=== PATIENT | male | born 1960 | race Caucasian/White ===

== ENCOUNTER → 2016-12-29 | Outpatient (CLI) | payer OTHER ==
[2016-12-29 18:21] LABS: ALT/SGPT 35 U/L (12-78); BLOOD UREA NITROGEN 14 mg/dl (7-18); BUN/CREATININE RATIO 13.1 (10-20); CALCIUM 8.9 mg/dl (8.5-10.1); CARBON DIOXIDE 28 mmol/L (21-32); CHLORIDE 104 mmol/L (98-107); GLUCOSE 114 mg/dl (70-99); POTASSIUM 3.8 mmol/L (3.5-5.1); SODIUM 141 mmol/L (136-145)
[2016-12-29 18:25] LABS: CHOLESTEROL 218 mg/dl (0-200); CHOLESTEROL/HDL RATIO 7.5; HDL CHOLESTEROL 29 mg/dl; LDL CHOLESTEROL CALCULATED 149 mg/dl; TRIGLYCERIDES 200 mg/dl (0-150); VERY LOW DENSITY LIPOPROT CALC 40 mg/dl
[2016-12-29 18:36] LABS: RATIO 15.3 mcg/mg (0-30.0)
[2016-12-30 07:14] LABS: ESTIMATED AVERAGE GLUCOSE 177 mg/dl; HA1C FLAG Normal (Normal)
== END | disposition home or self-care (01) ==
LOC: C.LABMFLN 11:35
PROVIDERS: ATTEND Family Medicine
DX: E11.65 Type 2 diabetes mellitus with hyperglycemia (principal)

== ENCOUNTER 2025-03-20 06:06 | Observation (INO) ==
--- NOTE | 2025-02-21 11:48 | PAT Medication Instructions ---
Medication Instructions Date of Service February 21, 2025 Home Medications Medication Instructions Recorded aspirin 81 mg tablet,delayed 81 mg PO DAILY #30 tabs 02/28/24 release (Ecotrin Low Strength) metoprolol tartrate 50 mg tablet 50 mg PO BID #180 tabs 06/29/24 atorvastatin 40 mg tablet 40 mg PO QAM #90 tabs 02/13/25 aspirin 81 mg tablet,delayed release (Ecotrin Low Strength) 81 mg PO DAILY metoprolol tartrate 50 mg tablet 50 mg PO BID atorvastatin 40 mg tablet 40 mg PO QAM cetirizine 10 mg tablet 10 mg PO UD PRN doxycycline monohydrate 100 mg tablet 100 mg PO BID gabapentin 400 mg capsule 300 mg PO TID glipizide 10 mg tablet, extended release 24 hr 10 mg PO QAM lisinopril 5 mg tablet 2.5 mg PO QPM metformin 750 mg tablet 750 mg PO QPM metformin 750 mg tablet,extended release 24 hr 1,500 mg PO QAM metronidazole 0.75 % topical cream (MetroCream) 1 applic topical UD PRN pioglitazone 15 mg tablet (Actos) 15 mg PO QAM tadalafil 20 mg tablet (Cialis) 20 mg PO UD PRN tamsulosin 0.4 mg capsule 0.4 mg PO QAM ASK your prescriber and surgeon aspirin 81 mg tablet,delayed release (Ecotrin Low Strength) 81 mg PO DAILY STOP taking 24 hours before surgery metronidazole 0.75 % topical cream (MetroCream) 1 applic topical UD PRN DO NOT take the morning of surgery cetirizine 10 mg tablet 10 mg PO UD PRN glipizide 10 mg tablet, extended release 24 hr 10 mg PO QAM metformin 750 mg tablet,extended release 24 hr 1,500 mg PO QAM pioglitazone 15 mg tablet (Actos) 15 mg PO QAM tadalafil 20 mg tablet (Cialis) 20 mg PO UD PRN Take morning of surgery With a small sip of water, OTHERWISE NOTHING TO EAT OR DRINK AFTER MIDNIGHT: metoprolol tartrate 50 mg tablet 50 mg PO BID atorvastatin 40 mg tablet 40 mg PO QAM doxycycline monohydrate 100 mg tablet 100 mg PO BID gabapentin 400 mg capsule 300 mg PO TID tamsulosin 0.4 mg capsule 0.4 mg PO QAM Take evening before surgery metoprolol tartrate 50 mg tablet 50 mg PO BID doxycycline monohydrate 100 mg tablet 100 mg PO BID gabapentin 400 mg capsule 300 mg PO TID lisinopril 5 mg tablet 2.5 mg PO QPM metformin 750 mg tablet 750 mg PO QPM Other Notes If you have any questions please call us at [phone] or [phone] or [phone] or [phone]
--- NOTE | 2025-02-27 09:11 | Anesthesiology Consultation ---
Date of Service February 27, 2025 Assessment & Plan (1) Encounter for pre-operative examination: - Case discussed in detail with Dr. Key who advised patient will need cardiology clearance given 01/2024 CABG. Workload note sent. Patient is aware, sees Dr. Wahl tomorradelina for routine visit. Surgeon's office made aware. - cardiology office visit 08/30/24 [place]: "...CAD (coronary artery disease): Status post four-vessel CABG. Blood pressure and heart rate are at target. Continue guideline directed medical therapy including aspirin 81 mg daily, atorvastatin, lisinopril and metoprolol to tartrate 50 mg p.o. twice daily. It would be reasonable for him to use nonsteroidals as needed for his orthopedic issues. He should take a break from them on occasion...Benign essential hypertension: Blood pressure is at target. Agree with lisinopril 2.5 mg daily and metoprolol to tartrate 50 mg p.o. twice daily..." Chart Review Chart Review: Pending: Refer to Additional Notes / Consult section and Patient seen in Pre Admission Testing Teaching & Discussion Pre-Anesthesia Teaching/Discussion Notes: Instructed NPO after midnight before surgery, except medications with 15 cc of water. Medication instructions provided according to the PAT guidelines. History Surgery Operation Date: 03/20/25 07:15 Proposed Procedures p C4-C5 Anterior Cervical Discectomy and Fusion - Jovi Regan MD Height/Weight Height: 6 ft 1 in Weight: 122.9 kg Allergies Allergy/AdvReac Type Severity Reaction Status Date / Time No Known Allergies Allergy Verified 02/20/25 15:31 Medications Home Medications Medication Instructions Recorded Confirmed Last Taken aspirin 81 mg tablet,delayed 81 mg PO DAILY #30 tabs 02/28/24 02/20/25 Unknown release (Ecotrin Low Strength) metoprolol tartrate 50 mg tablet 50 mg PO BID #180 tabs 06/29/24 02/20/25 Unknown atorvastatin 40 mg tablet 40 mg PO QAM #90 tabs 02/13/25 02/20/25 Unknown cetirizine 10 mg tablet 10 mg PO UD PRN allergies 02/20/25 02/20/25 Unknown doxycycline monohydrate 100 mg 100 mg PO BID 02/20/25 02/20/25 Unknown tablet gabapentin 400 mg capsule 300 mg PO TID 02/20/25 02/20/25 Unknown glipizide 10 mg tablet, extended 10 mg PO QAM 02/20/25 02/20/25 Unknown release 24 hr lisinopril 5 mg tablet 2.5 mg PO QPM 02/20/25 02/20/25 Unknown metformin 750 mg tablet 750 mg PO QPM 02/20/25 02/20/25 Unknown metformin 750 mg tablet,extended 1,500 mg PO QAM 02/20/25 02/20/25 Unknown release 24 hr metronidazole 0.75 % topical cream 1 applic topical UD PRN rosacea 02/20/25 02/20/25 Unknown (MetroCream) pioglitazone 15 mg tablet (Actos) 15 mg PO QAM 02/20/25 02/20/25 Unknown tamsulosin 0.4 mg capsule 0.4 mg PO QAM 02/20/25 02/20/25 Unknown tadalafil 20 mg tablet (Cialis) 20 mg PO UD PRN sexual activity #7 02/26/25 Unknown tabs Past Medical History Medical History CAD (coronary artery disease) CABG x 4 Dilated aortic root Moderately dilated aortic root 4.9 cm on 2019 echo and ascending aorta on 2023 stress echo GERD (gastroesophageal reflux disease) controlled, stable per pt History of COVID-19 x2, 2019 and 2020. No hx hospitalization-symptoms resolved HTN (hypertension) controlled, stable per pt Hyperlipidemia Left rotator cuff tear slight/no recommendation for sx. Rosacea Sleep apnea CPAP-compliant SVT (supraventricular tachycardia) Type 2 diabetes mellitus NIDDM Patient denies h/o stroke, seizures, heart attack, heart failure, blood clots/DVTs or blood transfusions. Exercise / Class Metabolic Activity II 4-5 Yardwork/Stairs/Walk up hill (denies chest discomfort or shortness of breath with one flight of stairs) Past Family History Family History Grandmother (Paternal) Diabetes Brother Hypertension Father Prostate cancer Grandmother (Paternal) Stroke Denies family history of Ovarian cancer Myocardial infarction Breast cancer Lung cancer Colorectal cancer Past Surgical History Surgical History History of cardiac cath 01/2024 prior to bypass sx, hx exertional c/p..abnormal stress test...cath/found blockages...bypass sx. cath done at [facility]. History of heart bypass surgery (02/22/24) quadruple bypass...[facility] History of tonsillectomy Hx of local excision of skin lesion (11/14/24) in office setting removed from nose/benign/[facility]/continues to use vaseline nightly and follows with dermatology. Past Anesthesia History No Hx of Anesthesia Complications and No Family Hx of Anesthesia Complications History of PONV No Hx of PONV and No Hx of Motion Sickness Social History Smoking Status: Former smoker Do You Dip or Chew Tobacco: No Smoking End Date: age 18's, for most part hx was pipe/occ cigar Hx Alcohol Use: No Hx Substance Use: No substance use type: does not use Review of Systems Patient denies chest pain, shortness of breath, dyspnea on exertion, fever, chills, cough, wheezing, or palpitations. Physical Exam Vital Signs Vitals BP 108/67 P 58 TEMP 98.2 SP02 97% on RA RESP 18 Physical Patient resting comfortably in chair in no acute distress, alert and oriented, responding appropriately throughout visit Full cervical extension range of motion without pain TMD 3.5 finger breadths Mallampati Score 3 Dentition: intact, denies chipped or loose teeth, caps/crowns, implants or bridges Lungs: normal respiratory effort. Good air movement, clear throughout to auscultation, no adventitious breath sounds Cardiac: regular rate and rhythm, no murmurs noted Carotid arteries: negative bruit bilat Lab Results Anesthesia Preop Results Results Anesthesia Widget: WBC 5.34 K/ul (4.8-10.8) 02/27/25 Hgb 13.4 g/dl (14.0-18.0) L 02/27/25 Hct 39.4 % (42.0-52.0) L 02/27/25 Plt 197 K/uL (130-400) 02/27/25 Na 139 mmol/L (136-145) 02/27/25 K 4.6 mmol/L (3.5-5.1) 02/27/25 Cl 105 mmol/L (98-107) 02/27/25 CO2 27 mmol/L (21-32) 02/27/25 BUN 17 mg/dl (6-23) 02/27/25 Creat 1.01 mg/dl (0.6-1.4) 02/27/25 Glucose Level 171 mg/dl (70-99(Fasting)) H 02/27/25 PT 11.3 Seconds (9.0-12.0) 02/27/25 PTT 27 Seconds (21-31) 02/27/25 INR 1.0 (0.9-1.1) 02/27/25 HA1c 7.2 % (4.5-5.6) H 02/27/25 Blood Type A Positive 02/27/25 Antibody Screen NEGATIVE 02/27/25 Testing Electrocardiogram Date: 02/27/25 Sinus bradycardia, rate 59 bpm Left axis deviation Chest X-Ray Date: 02/27/25 No acute findings. Echocardiogram Date: 04/15/20 EF 65-69% Mild cLVH Mild aortic valve regurgitation Mild tricuspid regurgitation Moderately dilated aortic root 4.9 cm Stress Test Date: 01/21/24 Abnormal exercise echocardiogram with evidence of inducible ischemia and exercise induced chest pain MPHR 90% EF 70% Mild cLVH mildly dilated aortic root Mildly dilated ascending aorta Subsequent CABG x 4 Cervical Spine Date: 02/06/25 1. Discogenic degeneration with facet arthrosis of the above, similar to the exam from 12/15/2023. 2. Mild central canal narrowing at C4-C5. 3. Multilevel neural foraminal stenosis is also generally unchanged. 4. Grade 1 anterolisthesis C4 on C5 and C5 on C6 is unchanged secondary to severe facet arthrosis at these levels. 5. Normal signal of the cervical spinal cord.
[~2025-03-20 06:06] MED LIST: ceFAZolin 2000MG 2,000 MG/15 ML SYR IV SCH
[2025-03-20] MEDS: ACETAMINOPHEN 500 MG TAB PO SCH (06:43)
[2025-03-20] MEDS: LR 60ML/HR IV SCH (06:43)
[2025-03-20] MEDS: GABAPENTIN 300 MG CAP PO SCH ×2 (06:43→14:03)
[2025-03-20] MEDS: LR 15ML/HR IV SCH (06:43)
[2025-03-20] MEDS ORDERED: PROPOFOL IV EMULSION 10 MG/ML 20 ML VIAL IV ONE (06:53)
[2025-03-20] MEDS ORDERED: LIDOCAINE 2% 2 ML VIAL/AMP(20MG/ML) INFIL ONE (06:53)
[2025-03-20] MEDS ORDERED: MIDAZOLAM HCL 1 MG/ML 2ML VIAL ONE (06:53)
[2025-03-20] MEDS ORDERED: fentaNYL citrate PF 100 MCG/2 ML VIAL ONE (06:54)
[2025-03-20] MEDS ORDERED: ROCURONIUM BROMIDE 10 MG/ML 5 ML VIAL IV ONE ×3 (06:59→09:45)
[2025-03-20] MEDS ORDERED: MAG SULFATE 50% 1GM/2ML VIAL IV ONE (07:03)
[2025-03-20] MEDS ORDERED: KETAMINE HCL 10MG/ML SYR ONE (07:05)
--- NOTE | 2025-03-20 07:11 | History & Physical Bridge Note ---
Date of Service March 20, 2025 History & Physical Bridge Note I have examined the patient, reviewed the History & Physical and in the interval since the performance of the History & Physical I have noted the following changes of clinical significance: no changes noted
[2025-03-20] MEDS ORDERED: ePHEDrine sulfate 50 MG/ML AMP IV PRN (07:15)
[2025-03-20] MEDS ORDERED: HYDROmorphone INJ 2 MG/ML SYR/VIAL IV PRN (07:15)
[2025-03-20] MEDS ORDERED: ATROPINE SULFATE 0.1 MG/ML 10ML SYR IV PRN (07:15)
--- NOTE | 2025-03-20 07:16 | History & Physical Report ---
Date of Service March 20, 2025 History of Present Illness Chief Complaint: left shoulder pain/weakness Primary Care Provider: Bola Stack MD Patient returns status post his cervical MRI on February 06. He continues to have the left arm and shoulder symptoms as discussed previously on several visits, evaluated both by myself and also Dr. Johnson. He has known C5 radiculopathy as per previous EMG. He reports no new changes today. Exam reveals symmetric strength for elbow flexion and the other motor groups. Review of cervical MRI images from [facility] from February 06, 2025 this is my separate interpretation, this reveals similar findings as noted on the previous MRI, at the C4-5 level there is a slight amount of anterior subluxation, there is severe left foraminal stenosis. There is some foraminal stenosis on the left at C3-4, but otherwise normal alignment and no findings regarding the central canal or the right foramen, there is some developing foraminal stenosis at C5-6 on the right, but there is no central stenosis at any of the levels. EMG report from [facility] from [facility] for January 27, 2024 reveals evidence of suggestive of subacute axonal pathology affecting C5 and C6 nerve roots bilaterally, also very mild carpal tunnel bilateral. Impression: Left C5 radiculopathy from the C4-5 level due to severe foraminal stenosis. Plan: Today I discussed with the patient treatment options, I did mention to him that if he were to wanting to avoid surgical intervention he could be set up with pain management for a transforaminal injection on the left at C4-5, but due to the amount of stenosis he has as visualized on the obliques, I think this would not be an effective long-term treatment. For this reason I recommended surgical intervention and due to the subluxation I do not think he would be a good candidate for disc arthroplasty, I would recommend ACDF with plate fixation at that level as the best option to try to alleviate the foraminal stenosis. Discussed was a hospital postoperative course, along with healing risk complications. He works in [employer] and I told him we would probably want to restrict his work for at least 6 weeks due to the amount of motion and activities is required for his job, he is understanding this and we will work to get him scheduled in the near future. Allergies Allergy/AdvReac Type Severity Reaction Status Date / Time No Known Allergies Allergy Verified 03/20/25 06:35 Home Medications Medication Instructions Recorded Confirmed Type aspirin 81 mg tablet,delayed 81 mg PO DAILY #30 tabs 02/28/24 03/20/25 Rx release (Ecotrin Low Strength) atorvastatin 40 mg tablet 40 mg PO QAM #90 tabs 02/13/25 03/20/25 Rx cetirizine 10 mg tablet (Zyrtec) 10 mg PO UD PRN allergies 02/20/25 03/20/25 History doxycycline monohydrate 100 mg 100 mg PO BID 02/20/25 03/20/25 History tablet gabapentin 400 mg capsule 300 mg PO TID 02/20/25 03/20/25 History glipizide 10 mg tablet, extended 10 mg PO QAM 02/20/25 03/20/25 History release 24 hr lisinopril 5 mg tablet 2.5 mg PO QPM 02/20/25 03/20/25 History metformin 750 mg tablet 750 mg PO QPM 02/20/25 03/20/25 History metformin 750 mg tablet,extended 1,500 mg PO QAM 02/20/25 03/20/25 History release 24 hr metronidazole 0.75 % topical cream 1 applic topical UD PRN rosacea 02/20/25 03/20/25 History (MetroCream) pioglitazone 15 mg tablet (Actos) 15 mg PO QAM 02/20/25 03/20/25 History tamsulosin 0.4 mg capsule (Flomax) 0.4 mg PO QAM 02/20/25 03/20/25 History tadalafil 20 mg tablet (Cialis) 20 mg PO UD PRN sexual activity #7 02/26/25 03/20/25 Rx tabs metoprolol tartrate 50 mg tablet 50 mg PO BID #180 tabs 02/28/25 03/20/25 Rx Past Med/Surg History Problem List Pre-operative cardiovascular examination, myocardial ischemia Encounter for pre-operative examination Tendinopathy of left biceps tendon Left rotator cuff tear Weakness of left shoulder CAD (coronary artery disease) Coronary artery disease with angina pectoris Numbness and tingling of left upper extremity Cervical radiculopathy at C5 NSAID long-term use Urinary frequency Plantar fasciitis of left foot Chronic GERD Ulnar neuropathy at wrist Carpal tunnel syndrome, left Cervical radiculopathy at C8 Cervical facet syndrome Left Myofascial muscle pain Cervical spondylosis SVT (supraventricular tachycardia) Obstructive sleep apnea (Acute) Benign essential hypertension Hypercholesterolemia Diabetes mellitus Medical History Dilated aortic root Left rotator cuff tear History of COVID-19 GERD (gastroesophageal reflux disease) SVT (supraventricular tachycardia) CAD (coronary artery disease) Rosacea Hyperlipidemia HTN (hypertension) Sleep apnea Type 2 diabetes mellitus Surgical History Hx of local excision of skin lesion (11/14/24) History of cardiac cath History of heart bypass surgery (02/22/24) History of tonsillectomy Family History Grandmother (Paternal) Diabetes Brother Hypertension Father Prostate cancer Grandmother (Paternal) Stroke Denies family history of Ovarian cancer Myocardial infarction Breast cancer Lung cancer Colorectal cancer Social History Smoking Status: Former smoker Tobacco Type: Pipe and Cigars Age Started Using Tobacco: 13; Age Quit Using Tobacco: 23; packs per day: 0.5; Smoking End Date: age 18's, for most part hx was pipe/occ cigar; Second Hand Exposure: No; Do You Dip or Chew Tobacco: No; Hx Alcohol Use: No Hx Substance Use: No Preferred Language: Lao Communication Ability: Effective Hearing Ability: Normal Weave Defect Charting Clerk Required: No Beliefs That Will Affect Care: Episcopal Episcopal Beliefs: Denominational marital status: Current Living Situation: Spouse Current Living Situation Comment: Spouse and Son How many Children do You have: 2 Feels Safe at Home: Yes Childhood Exposure to Second-Hand Smoke: Yes Seatbelt Use: always Sunscreen Use: No Assistive Devices: CPAP, Glasses and Hearing Aid - Bilateral Results & Data Results & Data Vital Signs (Past 12 Hours) Vital Signs Temp Pulse Resp BP Pulse Ox O2 Del Method 03/20/25 06:39 36.6 C 95 H 20 148/94 H 95 Room Air
[2025-03-20] MEDS: ceFAZolin 3000MG 3,000 MG/72.5 ML BAG IV SCH (07:49)
[2025-03-20] MEDS ORDERED: PHENYLEPHRINE 100MCG/ML 5ML SYR ONE (08:20)
[2025-03-20] MEDS ORDERED: ONDANSETRON INJ 2 MG/ML 2 ML VIAL ONE (08:29)
[2025-03-20] MEDS ORDERED: DEXAMETHASONE SOD INJ 4 MG/ML VIAL ONE (08:31)
[2025-03-20] MEDS ORDERED: SUGAMMADEX SODIUM 200 MG/2 ML VIAL IV ONE (09:51)
[2025-03-20] MEDS: GELATIN SPONGE 12-7MM ONE (10:25)
[2025-03-20] MEDS: THROMBIN 5000 UNITS KIT ONE (10:25)
[2025-03-20] MEDS: VANCOMYCIN HCL 1000MG/20ML VIAL ONE (10:26)
[2025-03-20] MEDS: FLOSEAL HEMOSTATIC MATRIX 5ML TOP ONE (10:26)
[2025-03-20] MEDS ORDERED: DO NOT ADMINISTER PNEUMOCOCCAL VACCINE PRN (10:38)
[2025-03-20] MEDS ORDERED: ALUMINUM/MAGNESIUM SUSP 30 ML UDC PO PRN (10:38)
[2025-03-20] MEDS ORDERED: ONDANSETRON INJ 2 MG/ML 2 ML VIAL IV PRN (10:38)
[2025-03-20] MEDS ORDERED: MAGNESIUM HYDROXIDE SUSP 30 ML UDC PO PRN (10:38)
[2025-03-20] MEDS ORDERED: PROMETHAZINE 12.5 MG/50.5 ML BAG IV PRN (10:38)
[2025-03-20] MEDS ORDERED: ACETAMINOPHEN 500 MG TAB PO PRN (10:38)
[2025-03-20] MEDS ORDERED: bisacodyL 10 MG SUPP PR PRN (10:38)
[2025-03-20] MEDS ORDERED: hydrOXYzine HCl 25 MG TAB PO PRN (10:38)
[2025-03-20] MEDS ORDERED: diphenhydrAMINE Capsule 25 MG CAP PO PRN (10:38)
[2025-03-20] MEDS ORDERED: ONDANSETRON 4 MG OD TAB PO PRN (10:38)
[2025-03-20] MEDS ORDERED: PHARMACY GLYCEMIC MGMT CONSULT PRN (10:38)
[2025-03-20] MEDS ORDERED: RACEPINEPHRINE 2.25% NEBU SOLN 0.5 ML VIAL INH PRN (10:38)
[2025-03-20] MEDS ORDERED: NALOXONE HCL 0.4 MG/1 ML VIAL/CARP IV PRN (10:38)
[2025-03-20] MEDS ORDERED: METOCLOPRAMIDE HCL INJ 5 MG/ML 2 ML VIAL IV PRN (10:38)
[2025-03-20] MEDS ORDERED: HYDROmorphone INJ 0.5 MG/0.5 ML SYR IV PRN (10:38)
[2025-03-20] MEDS ORDERED: ACETAMINOPHEN 1,000 MG/100 ML VIAL IV PRN (10:38)
[2025-03-20] MEDS ORDERED: dexAMETHasone 8 MG in SYRINGE 0 ML IV PRN (10:38)
[2025-03-20] MEDS ORDERED: SOD PHOSPHATE/SOD BIPHOSPHATE ENEMA 132 ML BTL PR PRN (10:38)
[2025-03-20] MEDS ORDERED: HYDROmorphone INJ 1 MG/ML SYRINGE IV PRN (10:38)
[2025-03-20] MEDS ORDERED: LORazepam 2 MG/1 ML VIAL IV PRN (10:38)
[2025-03-20] MEDS ORDERED: DO NOT ADMINISTER FLU VACCINE PRN (10:38)
[2025-03-20] MEDS ORDERED: LORazepam 0.5 MG TAB PO PRN (10:38)
[2025-03-20] MEDS ORDERED: FAMOTIDINE 20 MG TAB PO PRN (10:38)
--- NOTE | 2025-03-20 10:38 | Post Operative Brief Note ---
PG Immediate Post Op with CF Date of Surgery March 20, 2025 Pre & Post Diagnosis Operation Date: 03/20/25 07:30 Pre-Op Diagnosis: Cervical radiculopathy at C5, numbness and tingling of left upper extremity Post-Op Diagnosis: Cervical radiculopathy at C5, numbness and tingling of left upper extremity I identified the patient and participated in the time-out.: Yes Procedure Operation Date: 03/20/25 07:30 Actual Procedures p C4-C5 Anterior Cervical Discectomy and Fusion(Not Applicable) - Jovi Regan MD Surgeon Jovi Regan MD Meat Trimmer [employer] Estimated Blood Loss 20 Findings Consistent with Post-Op Diagnosis Specimens Specimen Description: No specimen per surgeon
[2025-03-20] MEDS ORDERED: GLUCOSE 40% GEL 15 GM TUBE PO PRN (11:00)
[2025-03-20] MEDS ORDERED: CARBOHYDRATES FOR HYPOGLYCEMIA PO PRN (11:00)
[2025-03-20] MEDS ORDERED: DEXTROSE 50% 50 ML SYRINGE IV PRN (11:00)
[2025-03-20] MEDS ORDERED: GLUCOSE 10 TAB/TUBE PO PRN (11:00)
[2025-03-20] MEDS ORDERED: GLUCAGON FOR INJ 1 MG VIAL SQ PRN (11:00)
--- NOTE | 2025-03-20 11:02 | Hospitalist Consultation ---
Date of Consultation March 20, 2025 Assessment & Plan (1) Cervical radiculopathy at C5: (2) CAD (coronary artery disease): (3) SVT (supraventricular tachycardia): (4) Hypercholesterolemia: (5) Diabetes mellitus: (6) Benign essential hypertension: (7) Obstructive sleep apnea: Plan 64yo male with PMHx significant for CAD, SVT, HTN, HLD, DM II, WOODY, GERD presented for C4-C5 anterior cervical discectomy and fusion with Dr Regan this morning. EBL 20cc. #Cervical radiculopathy -s/ p C4-C5 Anterior Cervical Discectomy and Fusion(Not Applicable) - Jovi Regan MD. EBL 20cc Pain control, bowel regimen, PT/OT, DVT prophlaxis per primary service Labs in AM #CAD, HTN, HLD, SVT -s/p complete revascularization in 2023 w/ CABG x 4, with no angina symptoms or physical limitations as note/clearance byDr Wahl 02/28- per cards (can hold ASA 7-10days prior to surgery) Continue metoprolol, Lisinopril, statin. Aspirin to resume when ok by primary service Monitor for any issues #DM II- A1c 7.2 in February, acceptable. On pioglitazone 15mg, metformin 750mg BID, glipizide 10mg daily Placed PO meds on hold while inpatient as pharmacy consulted while inpatient for glycemic management Monitor BSGs/adjustments as needed w/ dexamethasone IV w/ surgery Continue gabapentin for neuropathy, can add B12 w/ AM labs #WOODY -CPAP ordered as brought in however did send message primary to ensure able to utilize , otherwise will need to continue NC in meantime DVT proph: SCDs, pat bergman Dispo: continued inpatient stay Thank you for allowing hospitalist service participate in the care of Mr Churchill. Hospitalist service will follow up in AM but if doing well/stable, likely able to sign off. Please call with any questions/concerns. Supervising Physician Co-Signing Physician Notes Attending Attestation & Consult Note: Pt seen/examined, chart reviewed, consult care plan d/w MARTHA Dye. I agree w/ the dolan components of her consult documentation. 64yo male with CAD s/p CABG, SVT, HTN, hyperlipidemia, T2DM, WOODY on CPAP, and GERD. Presented for C4-C5 anterior cervical discectomy and fusion with Dr Regan today. Surgery was uneventful with minimal blood loss. I saw the patient on the medical/surgical floor post-op and he was resting comfortably without dyspnea, chest pain, abd pain or nausea. PMH/PSH/allergies/meds/sochx - reviewed VSS, afebrile gen - NAD, obese, lying comfortably in bed neck - dressings intact anterior neck, no hematoma, no obvious JVD heart - RRR, s1 s2, no murmur lungs - CTA b/l abd - soft NT ND BS+ ext - no edema, pulses 2+ b/l feet psych - a/o x 3 A/P: 1. s/p C4-C5 anterior cervical discectomy with fusion by Dr Regan. Defer pain meds, discharge/dispo to Dr Regan. -will f/u on labs in am 2. T2DM - pharmacy has been consulted by Dr Regan for glycemic oversight; holding PO meds; novolog SSI to be utilized, etc. 3. WOODY - Dr Regan ok with use of CPAP for sleep. 4. CAD - no ischemic symptoms post-op. 5. HTN - BPs minimally elevated post-op. Dexamethasone given faviola-operatively, pain, etc all likely to blame. Follow for now. Appreciate this consult. our team will follow with you. José Miguel Mackey MD History of Present Illness Reason for Consultation: medical management Requesting Physician: Dr Regan Attending Physician: Jovi Regan MD History of Present Illness 64yo male with PMHx significant for CAD, SVT, HTN, HLD, DM II, WOODY, GERD presented for C4-C5 anterior cervical discectomy and fusion with Dr Regan this morning. EBL 20cc. Eval in room 301, sitting up in bed. Pain controlled. Drinking water, tolerating well. No fever/chills, chest pain, shortness of breath, nausea or vomiting. Per patient, bringing in his CPAP for this evening and he is hopeful for dc in AM. Has held his ASA for about a week. Note does have slight enlargement lymph node on R neck, nontender. No recent fevers/chills but will monitor for any issues. No stridor, on 2L post-op. Allergies Allergy/AdvReac Type Severity Reaction Status Date / Time No Known Allergies Allergy Verified 03/20/25 06:35 Home Medications Medication Instructions Recorded Confirmed Type aspirin 81 mg tablet,delayed 81 mg PO DAILY #30 tabs 02/28/24 03/20/25 Rx release (Ecotrin Low Strength) atorvastatin 40 mg tablet 40 mg PO QAM #90 tabs 02/13/25 03/20/25 Rx cetirizine 10 mg tablet (Zyrtec) 10 mg PO UD PRN allergies 02/20/25 03/20/25 History doxycycline monohydrate 100 mg 100 mg PO BID 02/20/25 03/20/25 History tablet gabapentin 400 mg capsule 300 mg PO TID 02/20/25 03/20/25 History glipizide 10 mg tablet, extended 10 mg PO QAM 02/20/25 03/20/25 History release 24 hr lisinopril 5 mg tablet 2.5 mg PO QPM 02/20/25 03/20/25 History metformin 750 mg tablet 750 mg PO QPM 02/20/25 03/20/25 History metformin 750 mg tablet,extended 1,500 mg PO QAM 02/20/25 03/20/25 History release 24 hr metronidazole 0.75 % topical cream 1 applic topical UD PRN rosacea 02/20/25 03/20/25 History (MetroCream) pioglitazone 15 mg tablet (Actos) 15 mg PO QAM 02/20/25 03/20/25 History tamsulosin 0.4 mg capsule (Flomax) 0.4 mg PO QAM 02/20/25 03/20/25 History tadalafil 20 mg tablet (Cialis) 20 mg PO UD PRN sexual activity #7 02/26/25 03/20/25 Rx tabs metoprolol tartrate 50 mg tablet 50 mg PO BID #180 tabs 02/28/25 03/20/25 Rx cyanocobalamin (vitamin B-12) 1,000 mcg PO DAILY #30 caps 03/21/25 Rx 1,000 mcg capsule oxycodone 5 mg tablet 5 mg PO Q6H PRN pain #12 tabs 03/21/25 Rx oxycodone 5 mg tablet 5 mg PO Q6H PRN pain #12 tabs 03/21/25 Rx Patient History Medical History Dilated aortic root Moderately dilated aortic root 4.9 cm on 2019 echo and ascending aorta on 2023 stress echo Left rotator cuff tear slight/no recommendation for sx. History of COVID-19 x2, 2019 and 2020. No hx hospitalization-symptoms resolved GERD (gastroesophageal reflux disease) controlled, stable per pt SVT (supraventricular tachycardia) CAD (coronary artery disease) CABG x 4 Rosacea Hyperlipidemia HTN (hypertension) controlled, stable per pt Sleep apnea CPAP-compliant Type 2 diabetes mellitus NIDDM Surgical History Hx of local excision of skin lesion (11/14/24) in office setting removed from nose/benign/[facility]/continues to use vaseline nightly and follows with dermatology. History of cardiac cath 01/2024 prior to bypass sx, hx exertional c/p..abnormal stress test...cath/found blockages...bypass sx. cath done at [facility]. History of heart bypass surgery (02/22/24) quadruple bypass...[facility] History of tonsillectomy Family History Grandmother (Paternal) Diabetes Brother Hypertension Father Prostate cancer Grandmother (Paternal) Stroke Denies family history of Ovarian cancer Myocardial infarction Breast cancer Lung cancer Colorectal cancer Social History Smoking Status: Former smoker Tobacco Type: Pipe and Cigars Age Started Using Tobacco: 13; Age Quit Using Tobacco: 23; packs per day: 0.5; Second Hand Exposure: No; Do You Dip or Chew Tobacco: No; Hx Alcohol Use: No Hx Substance Use: No Preferred Language: Georgian Communication Ability: Effective Hearing Ability: Normal Warehouse Receiving Clerk Required: No Beliefs That Will Affect Care: Sikh Sikh Beliefs: Alevism marital status: Current Living Situation: Spouse Current Living Situation Comment: Spouse and Son How many Children do You have: 2 Feels Safe at Home: Yes Childhood Exposure to Second-Hand Smoke: Yes Seatbelt Use: always Sunscreen Use: No Assistive Devices: Glasses Review of Systems 2 Review of Systems: All systems reviewed & are unremarkable except as noted in HPI & below Physical Exam 2 Physical Exam: General: 64yo male sitting up in bed, NAD, entering room upon exiting HEENT: dressing to L neck c/d/i, no shadowing/significant hematoma, no stridor. ?slight enlargement submental lymph node on the R, nontender Resp: even/unlabored, slightly diminished in the bases but no wheezing/rales, on 2L NC CV: regular, no significant mrg, no pitting edema GI: +BS, slight distension but soft/nontender MSK/Neuro: nonfocal, not confused, moving all extremities, UE strength acceptable/equal, pulses present Psych: AO x3, cooperative Results & Data Results & Data Vital Signs (Past 12 Hours) Vital Signs Temp Pulse Resp BP Pulse Ox O2 Del Method 03/20/25 06:39 36.6 C 95 H 20 148/94 H 95 Room Air Laboratory Results 03/20/25 10:53 Diagnostic Findings Cervical Spine X-Ray 03/20/25 07:00 FL cervical 2-3V CLINICAL HISTORY: C4-C5 ACDF COMPARISON STUDY: None FLUOROSCOPY TIME: 92 seconds FLUOROSCOPY IMAGES: 9 EXPOSURE DOSE: 12 mGy FINDINGS: Fluoroscopy was provided for cervical spine surgery. IMPRESSION: Intraoperative fluoroscopy. ACT 112: Negative or not required by law. Electronically signed by: Johan Cohen M.D. 03/20/2025 11:05 AM PG Care Time/CCT Total # of Minutes Spent Total Time Spent with Patient: Total time spent is greater than 50% in coordination of care (as documented) at patient's floor/unit and/or counseling patient: Coding Level of Care Code 93737 IN/OBS CONSULT LVL 3,45M Diagnoses Cervical radiculopathy at C5 M54.12 Coronary artery disease involving coronary bypass graft of [place] heart without angina pectoris I25.810 Associated angina: without angina Coronary Disease-Associated Artery/Lesion type: bypass graft [place] vs. transplanted heart: [place] heart SVT (supraventricular tachycardia) I47.1 Hypercholesterolemia E78.00 Type 2 diabetes mellitus without complication, without long-term current use of insulin E11.9 Diabetes mellitus complication status: without complication Diabetes mellitus management retail intern insulin use: without [facility] use Diabetes mellitus type: type 2 Benign essential hypertension I10 Obstructive sleep apnea G47.33 (2) CAD (coronary artery disease) Associated angina: without angina Coronary Disease-Associated Artery/Lesion type: bypass graft [place] vs. transplanted heart: [place] heart Qualified Code(s): I25.810 - Atherosclerosis of coronary artery bypass graft(s) without angina pectoris (5) Diabetes mellitus Diabetes mellitus complication status: without complication Diabetes mellitus management retail intern insulin use: without [facility] use Diabetes mellitus type: type 2 Qualified Code(s): E11.9 - Type 2 diabetes mellitus without complications
--- NOTE | 2025-03-20 11:06 | Fluoroscopy Report ---
FL cervical 2-3V CLINICAL HISTORY: C4-C5 ACDF COMPARISON STUDY: None FLUOROSCOPY TIME: 92 seconds FLUOROSCOPY IMAGES: 9 EXPOSURE DOSE: 12 mGy FINDINGS: Fluoroscopy was provided for cervical spine surgery. IMPRESSION: Intraoperative fluoroscopy. ACT 112: Negative or not required by law. Electronically signed by: Johan Cohen M.D. 03/20/2025 11:05 AM
[2025-03-20 11:24] LABS: BUN Creatinine Ratio 16.5 (10-20); Calcium 8.5 mg/dl (8.6-10.3); Creatinine Clr Calc Pharmacy 96.6 ml/min; Potassium 4.8 mmol/L (3.5-5.1)
--- NOTE | 2025-03-20 11:45 | Anesthesiology Progress Note ---
Date of Service March 20, 2025 Anesthesia Post Procedure Vital Signs Vital Signs: Temp Pulse Pulse Resp BP Pulse Ox O2 Del Method 03/20/25 11:40 36.4 C L 70 14 149/71 H 96 Nasal Cannula 03/20/25 11:30 69 12 148/70 H 97 Nasal Cannula 03/20/25 11:20 71 13 145/74 H 96 Oxymask 03/20/25 11:10 69 20 141/68 H 96 Oxymask 03/20/25 11:00 70 13 144/72 H 95 Oxymask 03/20/25 10:50 69 18 132/72 99 Oxymask 03/20/25 10:43 36.2 C L 71 14 130/67 96 Oxymask 03/20/25 06:39 36.6 C 95 H 20 148/94 H 95 Room Air O2 Flow Rate 03/20/25 11:40 2 03/20/25 11:30 2 03/20/25 11:20 2 03/20/25 11:10 2 03/20/25 11:00 6 03/20/25 10:50 6 03/20/25 10:43 12 03/20/25 06:39 Pain Intensity Neck: Pain Intensity: 5 Transfer of Care Handoff Completed per policy Notes Mental Status: alert / awake / arousable Patient Amnestic to Procedure: Yes Nausea / Vomiting: adequately controlled Pain: adequately controlled Airway Patency, RR, SpO2: stable & adequate BP & HR: stable & adequate Hydration State: stable & adequate Anesthetic Complications: no major complications apparent
[2025-03-20] MEDS ORDERED: CETIRIZINE HCL 10 MG TABLET PO PRN (12:05)
[2025-03-20] MEDS: INSULIN ASPART PER UNIT CHARGE SC SCH (12:43)
[2025-03-20] MEDS: LANTUS PER UNIT CHARGE SC ONE (12:52)
--- NOTE | 2025-03-20 12:56 | Pharmacy Report ---
Pharmacy Glycemic Short Note 2 - Date of Service March 20, 2025 - Glycemic Short BSG Results (Last 24 hours): 03/20/25 03/20/25 03/20/25 06:29 10:45 10:53 Glucose 205 H POC Glucose 129 H 176 H 03/20/25 12:13 Glucose POC Glucose 191 H OUTPATIENT ANTIDIABETIC REGIMEN: * glipizide 10 mg PO daily * metformin 750 mg PO qPM * Pioglitazone 15 mg PO daily HbA1c: 7.2% (02/27/25) ASSESSMENT: * MM is a 64 year old male POD #0 s/p cervical discectomy/fusion * Received 4 mg IV dexamethasone in OR, no ongoing steroids ordered * Preop blood glucose of 129 mg/dL, postop blood glucose of 176 mg/dL * Will utilize aggressive ~weight-based stress of 3 regimen initially PLAN FOR INPATIENT GLYCEMIC CONTROL: * Hold outpatient oral diabetes medications * Basal insulin * Lantus 40 units SQ x 1 (~0.4 unit/kg of adjusted body weight) * Bolus insulin * NovoLog per scale ACHS or Q6hrs while NPO * Goal Range: Low 110 mg/dL - High 140 mg/dL * Correction Factor: 15 mg/dL/unit * Nutritional / Prandial insulin per carb ratio of 1 unit per 5 grams CHO consumed
[2025-03-20] MEDS: ceFAZolin 2000MG 2,000 MG/15 ML SYR IV SCH (16:28)
[2025-03-20] MEDS: lisinopril 2.5 MG TAB PO SCH (19:33)
[2025-03-20] MEDS: DOCUSATE SODIUM/SENNA 50/8.6MG TAB PO SCH (20:15)
[2025-03-21] MEDS: oxyCODONE/ACETAMINOPHEN 5mg/325mg TAB PO PRN (03:27)
[2025-03-21] MEDS: POLYETHYLENE (MIRALAX) 17 GM PACK PO SCH (05:15)
[2025-03-21 06:16] LABS: Hematocrit (blood only) 37.7 % (42.0-52.0); Hemoglobin 12.9 g/dl (14.0-18.0); Mean Corpuscular Hemoglobin 31.2 pg (25.0-34.0); Mean Corpuscular Hgb Conc 34.2 g/dL (32.0-36.0); Mean Corpuscular Volume 91.1 fL (80.0-100.0); Mean Platelet Volume 10.4 fL (9.4-12.4); Platelet Count 199 K/uL (130-400); RDW Coefficient of Variation 12.9 % (11.5-14.5); RDW Standard Deviation 42.8 fL (36.4-46.3); Red Blood Count 4.14 M/uL (4.70-6.10); White Blood Count 11.56 K/ul (4.8-10.8)
[2025-03-21 06:43] LABS: BUN Creatinine Ratio 14.1 (10-20); Calcium 8.8 mg/dl (8.6-10.3); Creatinine Clr Calc Pharmacy 108.1 ml/min; Magnesium 1.6 mg/dl (1.7-2.4); Potassium 4.2 mmol/L (3.5-5.1)
[2025-03-21 07:06] VITALS: BP 126/71; TEMP 97.9
[2025-03-21] MEDS: TAMSULOSIN HCL 0.4 MG CAP PO SCH (08:33)
[2025-03-21] MEDS: MAGNESIUM SULFATE / D5W 1 GM/100 ML BAG IV ONE (08:33)
[2025-03-21] MEDS: CYANOCOBALAMIN 1000 MCG/ML VIAL IM SCH (08:33)
--- NOTE | 2025-03-21 09:29 | Orthopedic Progress Note ---
Date of Service March 21, 2025 Assessment & Plan (1) S/P cervical spinal fusion: * Continue Current Treatment * Disposition: home * Daily treatment: Physical Therapy/ Occupational Therapy per protocol * Weight bearing status: 10lb lifting b/l UE * Continue to monitor for ABLA * Pain control * Soft cervical collar for comfort * Office/hospital f/u 2 weeks for progress check and staple/suture removal * Plan for discharge home today pending PT/OT clearance Subjective . Active Problems: S/p C4-5 ACFD 64 y/o male s/p C4-5 ACDF. Doing well overall, pain managed and improved function. Denies fever/chills, chest pain/SOB, nausea/vomiting. Otherwise no com plaints. Review of Systems All systems reviewed & are unremarkable except as noted in HPI & below. Physical Exam . * General: Alert and oriented, no acute distress * Constitutional: well-developed, well-nourished. * Respiratory: Normal respiratory effort, no distress * Gastrointestinal: No tenderness to palpation, no rigidity or guarding. * Skin: No rash or lesion. * Neurologic: Grossly normal * Musculoskeletal: Surgical dressing CDI. Cervical spine region without obvious deformity or overlying skin changes. Minimal tenderness of surgical region, otherwise no tenderness b/l UE. Neck ROM with minimal pain. AROM b/l shoulder flexion, elbow flexion/extension, wrist flexion/extension intact. Sensation intact radial/median/ulnar nerve distributions. Brisk capillary refill. Results & Data Results & Data Laboratory Results . Diagnostic Findings . PG Care Time/CCT Total # of Minutes Spent Total Time Spent with Patient: Total time spent is greater than 50% in coordination of care (as documented) at patient's floor/unit and/or counseling patient: Coding Level of Care Code 06722 Post Operative Follow-Up Diagnoses S/P cervical spinal fusion Z98.1
[2025-03-21 10:27] VITALS: PULSE 79; RESP 16; O2SAT 91
--- NOTE | 2025-03-21 11:32 | Hospitalist Progress Note ---
Date of Service March 21, 2025 Assessment & Plan (1) Cervical radiculopathy at C5: (2) CAD (coronary artery disease): (3) SVT (supraventricular tachycardia): (4) Hypercholesterolemia: (5) Diabetes mellitus: (6) Benign essential hypertension: (7) Obstructive sleep apnea: Plan 64yo male with PMHx significant for CAD, SVT, HTN, HLD, DM II, WOODY, GERD presented for C4-C5 anterior cervical discectomy and fusion with Dr Regan this morning. EBL 20cc. #Cervical radiculopathy -s/p C4-C5 Anterior Cervical Discectomy and Fusion POD#1- Jovi Regan MD. EBL 20cc Pain control, bowel regimen, PT/OT, DVT prophlaxis per primary service #CAD, HTN, HLD, SVT -s/p complete revascularization in 2023 w/ CABG x 4, with no angina symptoms or physical limitations as note/clearance byDr Wahl 02/28- per cards (can hold ASA 7-10days prior to surgery) Continue metoprolol, Lisinopril, statin. Aspirin to resume when ok by primary service Monitor for any issues #DM II- A1c 7.2 in February, acceptable. On pioglitazone 15mg, metformin 750mg BID, glipizide 10mg daily Placed PO meds on hold while inpatient as pharmacy consulted while inpatient for glycemic management Monitor BSGs/adjustments as needed w/ dexamethasone IV w/ surgery Continue gabapentin for neuropathy, can add B12 w/ AM labs #WOODY -CPAP ordered as brought in however did send message primary to ensure able to utilize , otherwise will need to continue NC in meantime #Hypomagnesemia Mag Sulfate 1g IV x1 ordered this AM Encouraged OTC multivit and ensuring enough dietary magnesium intake Thank you for allowing hospitalist service participate in the care of your patient. No further recommendations at this time. He is medically stable for discharge home with outpatient f/u with Dr. Regan and PCP. Admission and Anticipated Discharge Date Admission Date: March 20, 2025 Supervising Physician Co-Signing Physician Notes The patient was not seen by me. The chart was reviewed. Case discussed with MARTHA Morales. Agree with assessment and plan Jun Plaza was seen today on daily rounds. His pain is adequately controlled. No c/o chest pain or dyspnea. No BM yet but passing gas and voiding w/o issue. Per pt, he is to be discharged today. Review of Systems 2 Review of Systems: All systems reviewed and are unremarkable except as noted in HPI and below. Denies fever, chills, fatigue, headache, nasal congestion, sore throat, cough, chest pain, shortness of breath, palpitations, orthopnea, PND, abdominal pain, n/v/d, constipation, dysuria, hematuria, frequency, back pain, joint pain or swelling, easy bruising or bleeding, skin lesions or rashes. Physical Exam 2 Physical Exam: GENERAL: 64 yo well-nourished middle aged WM. No distress. LUNGS: Clear to auscultation bilaterally. No W/R/R. CARDIOVASCULAR: Regular rate and rhythm. ABDOMEN: Soft, non-tender and non-distended. BS normoactive x 4 quad. EXTREMITIES: No edema. Non-tender. Peripheral pulses +2/4. SKIN: Warm, dry, intact. No rashes or lesions. Results & Data Results & Data Vital Signs (Past 12 Hours) Vital Signs Temp Pulse Pulse Resp BP Pulse Ox O2 Del Method 03/21/25 10:26 79 16 91 Room Air 03/21/25 07:05 36.6 C 74 18 126/71 93 Room Air 03/21/25 06:52 86 16 95 Room Air 03/21/25 05:13 36.7 C 73 16 114/64 93 Room Air 03/21/25 04:00 76 18 96 Nasal Cannula 03/21/25 03:23 36.8 C 73 16 115/66 97 Nasal Cannula 03/21/25 01:49 36.8 C 77 18 138/83 96 Nasal Cannula 03/20/25 23:36 36.8 C 74 16 139/67 94 Nasal Cannula O2 Flow Rate 03/21/25 10:26 03/21/25 07:05 03/21/25 06:52 03/21/25 05:13 03/21/25 04:00 2 03/21/25 03:23 2 03/21/25 01:49 2 03/20/25 23:36 2 Laboratory Results 03/21/25 05:22 03/21/25 05:22 PG Care Time/CCT Total # of Minutes Spent Total Time Spent with Patient: Total time spent is greater than 50% in coordination of care (as documented) at patient's floor/unit and/or counseling patient: 35 minutes Coding Level of Care Code 81451 SUB INP/OBS CARE 2/35MIN Diagnoses Cervical radiculopathy at C5 M54.12 Coronary artery disease involving coronary bypass graft of [place] heart without angina pectoris I25.810 Associated angina: without angina Coronary Disease-Associated Artery/Lesion type: bypass graft [place] vs. transplanted heart: [place] heart SVT (supraventricular tachycardia) I47.1 Hypercholesterolemia E78.00 Type 2 diabetes mellitus without complication, without long-term current use of insulin E11.9 Diabetes mellitus complication status: without complication Diabetes mellitus [employer] insulin use: without [facility] use Diabetes mellitus type: type 2 Benign essential hypertension I10 Obstructive sleep apnea G47.33 (2) CAD (coronary artery disease) Associated angina: without angina Coronary Disease-Associated Artery/Lesion type: bypass graft [place] vs. transplanted heart: [place] heart Qualified Code(s): I25.810 - Atherosclerosis of coronary artery bypass graft(s) without angina pectoris (5) Diabetes mellitus Diabetes mellitus complication status: without complication Diabetes mellitus [employer] insulin use: without [employer] use Diabetes mellitus type: type 2 Qualified Code(s): E11.9 - Type 2 diabetes mellitus without complications
--- NOTE | 2025-03-21 16:22 | Operative Report ---
PG Post Operative Report Pre & Post Diagnosis Operation Date: 03/20/25 07:30 Pre-Op Diagnosis: Cervical radiculopathy at C5, numbness and tingling of left upper extremity Post-Op Diagnosis: Cervical radiculopathy at C5, numbness and tingling of left upper extremity I identified the patient and participated in the time-out.: Yes Procedure Operation Date: 03/20/25 07:30 Actual Procedures p C4-C5 Anterior Cervical Discectomy and Fusion(Not Applicable) - Jovi Regan MD Surgeon Jovi Regan MD Shim Plug Cutter Santo Stearns Estimated Blood Loss 20 Findings Consistent with Post-Op Diagnosis Specimens None Description of Procedure 1. C4-5 anterior cervical discectomy and fusion. (74313) 2. C4-5 anterior interbody cage, NuVasive interlock 2 TIC 8 x 17 x 14 mm lordotic with fixation screws. (33293) Patient was taken operating room after adequate anesthesia was carefully positioned supine on the OSI flattop table and carefully checked for positioning. After doing so a preprepped was performed the cervical region followed by positioning and marking for the incision using fluoroscopy. Prep and drape was performed, transverse incision over the C4-5 level was performed and advanced down to the anterior aspect of the cervical spine and the tissue was then mobilized in this region exposing the area and the position was conf irmed via fluoroscopy. Distractor pins were placed at C4 and C5 followed by the retractors, the procedure was started under the microscope with anterior annulotomy followed by a thorough discectomy to remove the disc material and cartilage from the endplates. Posterior decompression was performed with removal of posterior spondylosis, posterior annulus and ligament exposing down to the dura and then out to the uncinates on both sides with attention placed to the left side relative to the stenosis. Upon completion, trials were then inserted I selected size cage as noted, demineralized bone matrix was placed within and this was then tapped into position. Fixation screws were then inserted, 16 mm cephalad, up to 14 mm screws inferiorly at the C5 all with excellent purchase. Final images were obtained, the operative area was explored and no issues were noted, the operative site was closed with 3-0 Vicryl sutures followed by benzoin and Steri-Strips, sterile dressings applied, the patient tolerated procedure well was taken recovery room in satisfactory condition. I attest to the content of the Intraoperative Record and any orders documented therein. Any exceptions are noted below.
== END 2025-03-21 12:53 | disposition home or self-care (01) ==
LOC: 3E 06:06 → ASU 06:06